=== PATIENT | female | born 1980 | race Caucasian/White ===

== ENCOUNTER 2025-05-22 02:24 | Emergency (ER) | payer MEDICAID, SELFPAY ==
[2025-05-22 02:25] VITALS: BMI 38.0
[2025-05-22 02:35] VITALS: BP 139/91; PULSE 94; RESP 18; TEMP 37.1; O2SAT 97
--- NOTE | 2025-05-22 02:52 | XR_ITS ---
Examination: CT abdomen with intravenous contrast CT pelvis with intravenous contrast 2-D coronal reconstructions 2-D sagittal reconstructions Date and time of exam:May 22, 2025, 0458 hours INDICATIONS: Left flank pain radiating to the back beginning 5 days ago. CTDI: vol (mGy) 12.5 DLP: (mGycm) 715 Technique: Multiple axial sections of the abdomen and pelvis have been obtained. 64 slice high-resolution scanner used. 3 mm axial sections have been obtained, post intravenous injection 60 cc [id number] 2-D sagittal, coronal reconstructions obtained. Low dose protocols were performed. One or more of the following dose reduction techniques were used; automated exposure control, adjustment of the mA and/or KV according to patient size, use of iterative reconstruction technique. Findings: No focal liver or splenic lesions No gallstones No pancreatic mass Moderate left hydronephrosis, 8 mm distal left ureteral calculus No pelvic mass Bladder intact Impression: Moderate left hydronephrosis secondary to 8 mm distal left ureteral calculus
--- NOTE | 2025-05-22 02:53 | PD.EDRME ---
Rapid Medical Screening Exam RME Arrival date/time: 05/22/25 02:24 44F with no significant PMH presents to ED with 1 week of L-sided flank/ab pain, which is worse after she eats. Patient denies dysuria/hematuria. Chief Complaint: Back Pain/Injury Vital signs: Vital Signs Temperature 98.7 F 05/22/25 02:35 Pulse Rate 94 05/22/25 02:35 Respiratory Rate 18 05/22/25 02:35 Blood Pressure 139/91 H 05/22/25 02:35 Pulse Oximetry (%) 97 05/22/25 02:35 Oxygen Delivery Method Room Air 05/22/25 02:35
[2025-05-22] MEDS: ONDANSETRON INJ 2 MG/ML INJ 2 ML 4 MG IVP (03:17)
[2025-05-22 03:36] LABS: Collection Type, Urine Clean Catch
[2025-05-22 03:54] LABS: Basophils # (Auto) 0.0 Thou/mm3 (0.0-0.2); Basophils % (Auto) 0 % (0-2.5); Eosinophils # (Auto) 0.2 Thou/mm3 (0.0-0.5); Eosinophils % (Auto) 2 % (0-10); Hematocrit 36.7 % (36.0-46.0); Hemoglobin 12.7 g/dL (12.0-16.0); Immature Granulocytes Auto 0.03 Thou/mm3 (0.00-0.00); Lymphocytes # (Auto) 1.5 Thou/mm3 (1.0-4.8); Lymphocytes % (Auto) 14 % (10-50); Mean Corpuscular HGB Conc 34.6 g/dl (31.0-37.0); Mean Corpuscular Hemoglobin 30.7 pg (25.0-35.0); Mean Corpuscular Volume 89 fL (80-100); Monocytes # (Auto) 0.5 Thou/mm3 (0.0-0.8); Monocytes % (Auto) 5 % (0-12); Neutrophils # (Auto) 8.0 Thou/mm3 (1.8-7.7); Neutrophils % (Auto) 78 % (37-80); Nucleated Red Blood Cell # 0.00 Thou/mm3 (0.00-0.00); Nucleated Red Blood Cell % 0 /100 WBC (0); Platelet Count 293 Thou/mm3 (140-440); RDW Standard Deviation 39.5 fL (36.4-46.3); Red Blood Count 4.14 Miln/mm3 (4.00-5.20); White Blood Count 10.3 Thou/mm3 (3.6-11.0)
[2025-05-22 03:59] LABS: Alanine Aminotransferase 29 U/L (10-49); Albumin, Serum 5.0 gm/dL (3.5-5.0); Albumin/Globulin Ratio 1.7 (1.2-2.2); Alkaline Phosphatase 79 U/L (46-116); Anion Gap 8 (7-16); Aspartate Amino Transferase 35 U/L (0-34); BUN/Creatinine Ratio 11 Ratio (12-20); Bilirubin,Total 0.9 mg/dL (0.3-1.2); Blood Urea Nitrogen 15 mg/dL (9-23); Calcium 9.4 mg/dL (8.3-10.6); Calcium (Corrected) 9.4 mg/dL (8.5-10.1); Carbon Dioxide 22.9 mMol/L (20.0-31.0); Chloride 108 mMol/L (98-107); Creatinine (Component) 1.4 mg/dL (0.6-1.3); Estimated Creatinine Clearance 67.1 mL/min (>60); Globulin 3.0 gm/dL (2.3-3.5); Glucose 107 mg/dL (74-106); Lipase 32 U/L (12-53); Osmolality,Calculated 278 (275-295); Potassium 3.9 mMol/L (3.4-5.1); Sodium 139 mMol/L (136-145); Total Protein 8.0 gm/dL (5.7-8.2); eGFR 47 See Note
[2025-05-22 04:07] LABS: Bacteria,Urine 4+; Bilirubin,Urine Negative (Negative); Blood,Urine 1+ (Negative); Color,Urine Yellow (Lt Yel-Yel); Culture Indicated,Urine Contaminated; Glucose, Urine Negative (Negative); Ketones,Urine Negative (Negative); Leukocyte Esterase,Urine Positive (Negative); Nitrite,Urine Negative (Negative); PH,Urine 6.0 (5.0-7.0); Protein,Urine 1+ (Neg - Trace); RBC,Urine 55 /hpf (0-3); Specific Gravity,Urine 1.047 (1.001-1.035); Squamous Epithelial Cell,Urine 43 /hpf (0-5); Urobilinogen,Urine 2.0 mg/dL (0.0-1.0); WBC,Urine 157 /hpf (0-5)
[2025-05-22 04:08] LABS: Clarity,Urine Turbid (Clear/Hazy)
[2025-05-22 04:09] LABS: HCG Qualitative,Urine Negative
[2025-05-22 04:21] LABS: Amphetamine/Methamp Scrn,U Negative (Negative); Barbiturate Screen,Urine Negative (Negative); Benzodiazepines Screen,Urine Negative (Negative); Benzoylecgonine Screen, Ur Negative (Negative); Fentanyl Screen,Urine Negative (Negative); Opiate Screen,Urine Negative (Negative); THC Screen,Urine Negative (Negative)
[2025-05-22] MEDS: RINGERS LACTATED 1000 ML 1,000 ML 999 ML IV (04:35)
--- NOTE | 2025-05-22 05:49 | PRELIM_ITS ---
CT scan of the abdomen and pelvis with intravenous contrast (axial sections with sagittal and coronal reformats) May 22, 2025 0458 hours Clinical History: L-sided ab pain Findings: Bibasilar dependent atelectasis is present. There is 8mm obstructing left distal ureteric calculus causing moderate hydroureteronephrosis(axial image 179/287). The liver, gallbladder, pancreas, spleen and adrenals are unremarkable. No evidence of bowel obstruction. The appendix is within normal limits. There is no mesenteric or retroperitoneal adenopathy. The urinary bladder is unremarkable. There is no free fluid or free air. The uterus and adnexa are unremarkable. The osseous structures are unremarkable. Impression: A 8mm obstructing left distal ureteric calculus causing moderate hydroureteronephrosis. Other findings as described above. Report Electronically Signed By: Israel Angel 05/22/2025 5:49:06 AM [EST]
[2025-05-22] MEDS: cefTRIAXone 2 GM in SODIUM CHLORIDE 0.9% (Popper) 50 ML IV (06:04)
[2025-05-22 06:28] VITALS: BP 183/103; PULSE 76; RESP 18; O2SAT 97
[2025-05-22 06:43] VITALS: BP 183/103; PULSE 67
[2025-05-22] MEDS: KETOROLAC INJ 30 MG/ML VIAL 15 MG IVP (06:43)
[2025-05-22 06:49] VITALS: BP 183/103; PULSE 70; RESP 18; TEMP 37.1; O2SAT 95
--- NOTE | 2025-05-22 06:53 | EDNOTE_ITS ---
ED Abdominal Pain RME/HPI General Chief Complaint: Back Pain/Injury Stated complaint: LEFT FLANK PAIN RADIATES TO ABD X 5DAYS Time seen by provider: 05/22/25 06:30 Arrival date/time: 05/22/25 02:24 Limitations: no limitations RME / HPI RME / HPI narrative: 05/22/25 02:24 44F with no significant PMH presents to ED with 1 week of L-sided flank/ab pain, which is worse after she eats. Patient denies dysuria/hematuria. DR. SALMON MAIN ED EVALUATION: 44 year old female presents to the Emergency Department accompanied by her with complaint of left flank pain onset 1 week and worse today. She denies any other symptoms at this time. PMHx: Denies any PMHx, surgeries, daily medications, or known allergies. Social Hx: No tobacco, alcohol, or substance use. Related Data Previous Rx's ?Medication ?Instructions ?Recorded ciprofloxacin HCl 500 mg tablet 500 mg PO Q12H UTI #20 tabs 05/22/25 hydrocodone 5 mg-acetaminophen 325 1 tab PO Q6H PRN pa in #20 tabs 05/22/25 mg tablet Allergies Allergy/AdvReac Type Severity Reaction Status Date / Time No Known Allergies Allergy Unknown Uncoded 12/16/05 10:11 Review of Systems Review of Systems Systems Reviewed: All systems reviewed, normal except as documented Past Medical History Past Medical History RESPIRATORY: Positive Asthma GENITOURINARY: Positive Genitourinary Disorders and Kidney Stones REPRODUCTIVE: Positive Previous Pregnancies HEMATOLOGIC: Positive Anemia Social History SMOKING STATUS: Never smoker SUBSTANCE USE: does not use ED Exam General Limitations: Present no limitations General appearance: Present alert and in no apparent distress Head Head exam: Present atraumatic, normocephalic and normal inspection Eye Eye exam: Present normal appearance, PERRL and EOMI ENT ENT exam: Present normal exam, normal oropharynx and mucous membranes moist Neck Neck exam: Present normal inspection, full ROM and trachea midline Chest Chest inspection: Present normal inspection and symmetric chest wall rise Respiratory Respiratory exam: Present normal lung sounds bilaterally Cardiovascular Cardiovascular exam: Present regular rate, normal rhythm and normal heart sounds Abdominal Exam Abdominal exam: Present tenderness (left flank tenderness) and normal bowel sounds Extremities Exam Extremities exam: Present normal inspection and full ROM Back Exam Back exam: Present normal inspection and full ROM Neurological Exam Neurological exam: Present alert, oriented X3 and CN II-XII intact Psychiatric Psychiatric exam: Present normal affect and normal mood Skin Skin exam: Present warm, dry, intact and normal color Course Quality Measures none Orders Category Date Time Status CT Screening NOW Care 05/22/25 02:52 Active Insert IV NOW Care 05/22/25 02:52 Active Transfer to another facility [Transfer/Discharge] Stat Discharge 05/22/25 07:[address] abdomen pelvis w con Stat Exams 05/22/25 02:52 Completed CBC Stat Lab 05/22/25 03:25 Completed CMP [Comprehensive Metabolic Panel] Stat Lab 05/22/25 03:25 Completed Drug Screen,Urine Stat Lab 05/22/25 03:32 Completed HCG Qualitative,Urine Stat Lab 05/22/25 03:32 Completed Lipase Stat Lab 05/22/25 03:25 Completed Urinalysis, C/S if Indicated Stat Lab 05/22/25 03:32 Completed Ketorolac Inj [Toradol Inj] Med 05/22/25 06:34 Discontinued 15 mg IVP X1 ONE Ondansetron Inj [Zofran Inj] Med 05/22/25 02:53 Discontinued 4 mg IVP X1 ONE Pantoprazole Inj [Protonix Inj] Med 05/22/25 02:54 Discontinued 40 mg IVP X1 ONE Ringers Lactated 1000 ml [Lactated Ringers] 1,000 ml Med 05/22/25 04:03 Discontinued IV 999 mls/hr cefTRIAXone [Rocephin] 2 gm Med 05/22/25 05:56 Discontinued SODIUM CHLORIDE 0.9% (Popper) [Ns 0.9% (P)] 50 ml IV QDAY cefTRIAXone [Rocephin] 2 gm Med 05/22/25 06:33 Discontinued SODIUM CHLORIDE 0.9% (Popper) [Ns 0.9% (P)] 50 ml IV X1 cloNIDine HCL [Catapres] Med 05/22/25 06:38 Discontinued 0.1 mg PO X1 ONE Vital Signs Vital signs: Vital Signs Temperature 98.7 F 05/22/25 02:35 Pulse Rate 94 05/22/25 02:35 Respiratory Rate 18 05/22/25 02:35 Blood Pressure 139/91 H 05/22/25 02:35 Pulse Oximetry (%) 97 05/22/25 02:35 Oxygen Delivery Method Room Air 05/22/25 02:35 Abdominal Pain MDM MDM Narrative MDM Narrative:: I, Rachel Livan, am scribing for and in the presence of Dr. Salmon. Patient data External records reviewed:: [facility] previous records Clinical information provided by:: patient Social determinants that could affect healthcare access:: none Patient has the following chronic illnesses:: PMHx: Denies any PMHx, surgeries, daily medications, or known allergies. Social Hx: No tobacco, alcohol, or substance use. How is presenting disease/condition affected by chronic disease/condition?: no chronic disease Evaluation data The following diagnostics were reviewed and interpreted by me:: lab results and radiology exam(s) Lab and/or radiology exams considered but not ordered:: none Interpretation Summary: [facility] [address] [place] [address] [place] Preliminary Report Draft Patient: VERA GOINS Record#: [id number] Birthdate: 1980 Age/Sex: 44 / F Location: [facility] Attending Dr: Ordering Physician: Date of Service: Procedure(s): Accession Number(s): cc: ~ CT scan of the abdomen and pelvis with intravenous contrast (axial sections with sagittal and coronal reformats) May 22, 2025 0458 hours Clinical History: L-sided ab pain Findings: Bibasilar dependent atelectasis is present. There is 8mm obstructing left distal ureteric calculus causing moderate hydroureteronephrosis(axial image 179/287). The liver, gallbladder, pancreas, spleen and adrenals are unremarkable. No evidence of bowel obstruction. The appendix is within normal limits. There is no mesenteric or retroperitoneal adenopathy. The urinary bladder is unremarkable. There is no free fluid or free air. The uterus and adnexa are unremarkable. The osseous structures are unremarkable. Impression: A 8mm obstructing left distal ureteric calculus causing moderate hydroureteronephrosis. Other findings as described above. Report Electronically Signed By: Israel Angel 05/22/2025 5:49:06 AM [EST] TD/TT: 05/22/25 0549 Cherry Picker Operator: ---- Procedure(s): CT abdomen pelvis w con Accession Number(s): [id number] cc: Hardik Adkins MD; NO PRIMARY/FAMILY,PHYSICIAN; Kenny Bullard PA-C~ Examination: CT abdomen with intravenous contrast CT pelvis with intravenous contrast 2-D coronal reconstructions 2-D sagittal reconstructions Date and time of exam:May 22, 2025, 0458 hours INDICATIONS: Left flank pain radiating to the back beginning 5 days ago. CTDI: vol (mGy) 12.5 DLP: (mGycm) 715 Technique: Multiple axial sections of the abdomen and pelvis have been obtained. 64 slice high-resolution scanner used. 3 mm axial sections have been obtained, post intravenous injection 60 cc [id number] 2-D sagittal, coronal reconstructions obtained. Low dose protocols were performed. One or more of the following dose reduction techniques were used; automated exposure control, adjustment of the mA and/or KV according to patient size, use of iterative reconstruction technique. Findings: No focal liver or splenic lesions No gallstones No pancreatic mass Moderate left hydronephrosis, 8 mm distal left ureteral calculus No pelvic mass Bladder intact Impression: Moderate left hydronephrosis secondary to 8 mm distal left ureteral calculus Dictated By: Hardik Adkins MD Medications / Prescriptions Medications or Prescriptions considered but not ordered:: none Medication administrations:: Medication Administration History Discontinued Medications Clonidine (Clonidine Hcl 0.1 Mg Tablet) 0.1 mg PO X1 ONE Stop: 05/22/25 06:39 Last Admin: 05/22/25 06:43 Dose: 0.1 mg Documented By: TEDDY Lactated Ringer's (Lactated Ringers) 1,000 mls @ 999 mls/hr IV .Q1H1M ONE Stop: 05/22/25 05:03 Last Infusion: 05/22/25 05:38 Dose: Infused Documented By: Admin: 05/22/25 04:35 Dose: 999 mls/hr Documented By: DAVE Ceftriaxone Sodium 2 gm/ (Sodium Chloride) 50 mls @ 100 mls/hr IV QDAY ONE Stop: 05/22/25 06:25 Last Infusion: 05/22/25 06:39 Dose: Infused Documented By: Admin: 05/22/25 06:04 Dose: 100 mls/hr Documented By: DAVE Ceftriaxone Sodium 2 gm/ (Sodium Chloride) 50 mls @ 100 mls/hr IV X1 ONE Stop: 05/22/25 07:02 Last Admin: 05/22/25 09:21 Dose: Not Given Documented By: ALICE Non-Admin Reason: Cancelled by Provider Ketorolac Tromethamine (Ketorolac Inj 30 Mg/Ml Vial) 15 mg IVP X1 ONE Stop: 05/22/25 06:35 Last Admin: 05/22/25 06:43 Dose: 15 mg Documented By: TEDDY Ondansetron HCl (Ondansetron Inj 2 Mg/Ml Inj 2 Ml) 4 mg IVP X1 ONE; Protocol Stop: 05/22/25 02:54 Last Admin: 05/22/25 03:17 Dose: 4 mg Documented By: JORDON Pantoprazole Sodium (Pantoprazole Inj 40 Mg Vial) 40 mg IVP X1 ONE Stop: 05/22/25 02:55 Last Admin: 05/22/25 03:16 Dose: 40 mg Documented By: JORDON see above Consultations Consultation(s) initiated? (list below): Yes Consultation #1 (Physician, Specialty, Details): Discussed test HPI, PMHx, lab, radiology results and/or management with Dr. Thompson. Recommends the patient to be discharged, no need to transfer, and follow as an outpatient. Time: 14:42 Diagnosis Differential diagnosis abdominal pain: abdominal pain, calculus of kidney and other (UTI, sepsis) Most likely diagnosis given after review of the tests above:: Left kidney stone UTI Admission Indicated Admission indicated?: not indicated Admission Request Was there a request for admission?: No Disposition Plan Disposition Plan: Discharge Discharge Attestation Discharge Attestation: The patient and all family members were given an opportunity to ask questions and understood the discharge instructions. Discharge instructions specifically effects, indications for sooner follow up or return to the emergency department, and the expected course of current diagnosis. Patient condition: Stable Discharge Plan Plan Patient Disposition: HOME (Self Care) Patient condition on transfer: Stable Prescriptions/Referrals Prescriptions/Med Rec: New ciprofloxacin HCl 500 mg tablet 500 mg PO Q12H MDD 2 Qty: 20 0RF hydrocodone-acetaminophen 5-325 mg tablet 1 tab PO Q6H MDD 4 PRN (Reason: pain) Qty: 20 0RF Referrals: Federico Thompson [Other] - 05/26/25 (Please follow up with Urologist in 2-3 days.) [facility] [Outside] - In 1 week Problem List Clinical Impression: Kidney stone on left side, UTI (urinary tract infection) Patient/Caregiver Discharge Instructions Education Materials: Urinary Tract Infections in Women, ED Hematuria, ED Kidney Stone w/ Colic Additional Instructions: Please follow-up with your primary care physician and urologist above within 2-3 days. Return to the Emergency Department as needed. Print Language: Greenlandic Stand Alone Forms: Kimberli Award Info., Work/School Release, Patient Portal Info Letter
--- NOTE | 2025-05-22 07:23 | PC.CC ---
Addendum entered by Didi Zavala RN 05/22/25 13:53: Safia from [facility] called back and per Dr. Tobin patient does not need to be transferred for any Urological intervention, patient can be dc home on antibiotics and instructed to return if fever develops, Dr. Olson made aware, per Dr. Olson transfer is cancelled Addendum entered by Didi Zavala RN 05/22/25 12:17: Spoke to Kinga from [facility] clinicals will wait for call back Addendum entered by Didi Zavala RN 05/22/25 09:33: 0930- Spoke to Paul at [facility], face sheet faxed, he states the nurse will call back 911- Spoke to Kandice at [facility] who states transfer is declined due to it being a lateral transfer because we have the ability to place a nephrostomy, explained to transfer center we do not have urology to manage nephrostomy and they said patient can go home with nephrosotomy and patient was declined Addendum entered by Didi Zavala RN 05/22/25 08:21: [facility] called back to speak to Dr. Olson again at this time Addendum entered by Didi Zavala RN 05/22/25 07:47: Spoke to Kandice at [facility] transfer center chart faxed, images pushed, Dr. Olson speaking with transfer center Addendum entered by Didi Zavala RN 05/22/25 07:43: [facility] called back and states they do not have urology material control specialist Original Note: Left voicemail for [facility] for possible transfer, chart faxed will wait for call back
[2025-05-22 09:19] VITALS: BP 115/92; PULSE 68; RESP 18; TEMP 36.7; O2SAT 97
[2025-05-22 15:34] VITALS: BP 131/96; PULSE 68; RESP 12; O2SAT 96
== END 2025-05-22 15:37 | disposition home or self-care (01) ==
PROVIDERS: Physician Assistant; Emergency Provider Family Medicine
DX: N13.6 Pyonephrosis (principal)
CPT/HCPCS: 36415; 74177; 80053; 80307; 81001; 81025; 83690; 85025; 96361; 96365; 96375; 99285; A4649; J0696; J1885; J2405; J2470; J7050; J7120; Q9967; A9270